=== PATIENT | male | born 1970 | race Two or more races ===

== ENCOUNTER 2018-04-20 09:44 | Outpatient (CLI) | payer OTHER | END 2018-04-20 09:45 | disposition home or self-care (01) | LOC: SC 09:44 | PROVIDERS: ATTEND Internal Medicine Pulmonary Disease | DX: G47.33 Obstructive sleep apnea (adult) (pediatric) (principal); E66.9 Obesity, unspecified; Z68.31 Body mass index [BMI] 31.0-31.9, adult | CPT/HCPCS: 99203; 99212 ==

== ENCOUNTER 2018-06-02 14:00 | Outpatient (CLI) | payer OTHER | END 2018-06-02 14:01 | disposition home or self-care (01) | LOC: SC 14:00 | PROVIDERS: ATTEND Internal Medicine Pulmonary Disease | DX: G47.33 Obstructive sleep apnea (adult) (pediatric) (principal) | CPT/HCPCS: 99212; 99213 ==

== ENCOUNTER 2018-07-30 13:52 | Outpatient (CLI) | payer OTHER | END 2018-07-30 13:53 | disposition home or self-care (01) | LOC: SC 13:52 | PROVIDERS: ATTEND Nurse Practitioner Family | DX: G47.33 Obstructive sleep apnea (adult) (pediatric) (principal) | CPT/HCPCS: 99212; 99214 ==

== ENCOUNTER 2019-08-09 15:15 | Outpatient (CLI) | payer OTHER ==
[2019-08-09 16:16] VITALS: BP 120/80
--- NOTE | 2019-08-09 16:16 | SLEEP CARE CONSULTATION ---
Information from patient questionnaire entered by Kirsten Chowdhury. I have reviewed and concur with the information entered by iKrsten Chowdhury. This document represents the service I personally performed and the decisions made by me, Sommer Cummins, RN, MSN, PATIENT SCHEDULING COORDINATOR. History of Present Illness Previous diagnosis: Moderate, Obstructive Sleep Apnea-Hypopnea Syndrome AHI: 15.8 Reason for follow up: annual Equipment type: CPAP Equipment obtained from: [employer] Mask style: Full face (air touch) Mask brand: Resmed Backup mask available: Yes Last cushion change: a few weeks ago Prior sleep studies: Yes HPI additional information: [employer] informed patient they do not carry battery for CPAP. 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 CPAP Compliance Data - Data Reviewed with Patient Average duration of nightly device use: 8h 25m Compliance rate %: 100 Current pressure setting (cmH2O): 6-13 Average residual AHI: 3.1 Subjective Patient concerns: reports: mask discomfort (nasal bridge soreness. he contacted [employer] and F30 ordered. ), air blowing in eyes (intermittently a couple times a week, wears a eye cover ), condensation in mask/hose (a couple times a month - adjusted the heated hose higher and reduced humidity), dry mouth, nose, throat (*mouth after increasing the heated hose. ), other (headache, heartburn). denies: aerophagia, mask leak noise, epistaxis Observed to snore while using device: No Current pressure setting perceived as: comfortable On therapy, patient: reports: sleeping better, awakening more refreshed, being more awake and alert during the day, more rested overall. denies: drowsiness while driving Initial [place] Sleepiness Scale score: 7 Current [place] Sleepiness Scale score: 4 Allergies and Home Medications Known drug allergies: No Home medication list reviewed: Yes (no change - see list ) Allergy and home medication list: Medication Name (generic/name brand) Strength & Dosage Flonase nasal spray prn Claritin 10mg prn Multi-vitamins Daily sudafed 30mg bid prn current URI Cough suppressant As needed Cough drops Acetaminophen 325mg prn Review of Systems Review of systems same as previous: Yes Physical Exam Blood Pressure: 120/80 Cuff size: long Heart Rate: 79 O2 Saturation: 97 Height: 6 ft Weight: 254 lb 3.2 oz (with boots and fatigues) Weight change since last visit: gained 5 pounds Body Mass Index: 34.4 BMI Classification: Obesity Class 1 Impression and Plan 1. Obstructive Sleep Apnea-Hypopnea Syndrome, moderate, with good treatment com pliance and good apnea control. On CPAP therapy, the patient has better sleep quality and is more rested overall. To reduce condensation, he is to increase heated hose to at least 72 degrees and adjust up at needed while increasing the humidity to 5 to reduce oral dryness as shown on sample device. Printed instructions given with rationale explained for changing settings.For mask discomfort, a mask specific prescription was made for F30 style patient would like to try. If any problems with mask fit, he is to contact [employer] [facility] right away so can be replaced with another style less than 30 days. Patient has gained weight. Currently patients BMI is 34.4 obesity class 1. Obesity increases the risk of apnea, CPAP pressure requirements and overall health risks especially cardiovascular and diabetes. Thus patient is advised to lose weight. Weight loss can be done with reducing portion size, refined foods and balancing content with vegetables, fruit and protein. Also eating slower. A diet c onsultation can be helpful in achieving optimal weight loss goals. The BMI chart was reviewed. The patient would like to reduce to 220pounds bringing their BMI down to 29. Patient encouraged to discuss their weight loss goals with their PCP and consider a referral to a metal work duct installer. The patient's CPAP auto pressure should accommodate for some future weight loss. Symptoms to report for additional pres sure adjustment discussed. Patient's apnea severity and rationale for treatment to reduce apnea, improve sleep quality and reduce cardiovascular and cerebrovascular events was reviewed. I will contact the [employer] [facility] to see why [employer] cannot supply a CPAP battery for deployment. I will contact patient with results. For his headache and heartburn complaints, he is to follow up with is PCP for further evaluation. * Continue CPAP pressure at 6-13 cmH2O * F30 mask style prescription * Adjust heated hose / humidity * Notify me if snoring with mask or feeling that the pressure is too much or too little * Attempt to lose weight * Call this office if any problems using CPAP * Emailed [employer] rep in regard to CPAP battery availability- * Contact PCP for concerns about heartburn / headache. * Return for follow up in 1 year , or sooner if concerns arise Time Spent with Patient (minutes): 35 I spent 100% of this visit face to face with the patient with greater than 50% of this was spent time counseling the patient and coordination of care.
== END 2019-08-09 15:16 | disposition home or self-care (01) ==
LOC: SC 15:15
PROVIDERS: ATTEND Nurse Practitioner Family
DX: G47.33 Obstructive sleep apnea (adult) (pediatric) (principal); E66.9 Obesity, unspecified; Z68.34 Body mass index [BMI] 34.0-34.9, adult
CPT/HCPCS: 99212; 99214